=== PATIENT | female | born 1985 | race Asian ===

== ENCOUNTER 2024-04-28 08:42 | Emergency (ER) | payer OTHER ==
[~2024-04-28] VITALS: Ht 144.8 cm; Wt 54.5 kg
[2024-04-28 08:44] VITALS: TEMP 98
[2024-04-28] MEDS ORDERED: SIMV-259 PO (08:47)
[2024-04-28] MEDS: LORazepam 1 MG TABLET PO ONE ×2 (09:50→10:15)
[2024-04-28 09:57] LABS: BASOPHILS % (AUTO) 0.5 % (0.0-2.0); EOSINOPHILS % (AUTO) 0.5 % (1.0-6.0); HEMATOCRIT 38.2 % (36-46); HEMOGLOBIN 12.7 g/dL (12.0-16.0); LYMPHOCYTES # (AUTO) 2.3 K/uL (1.0-4.8); LYMPHOCYTES % (AUTO) 36.8 % (22.0-44.0); MEAN CORPUSCULAR HEMOGLOBIN 28.3 pg (26.0-34.0); MEAN CORPUSCULAR HGB CONC 33.1 G/dL (31.0-37.0); MEAN CORPUSCULAR VOLUME 85 fL (80-100); MONOCYTES # (AUTO) 0.3 K/uL (0.1-1.0); MONOCYTES % (AUTO) 4.7 % (2.0-9.0); NEUTROPHILS # (AUTO) 3.5 K/uL (1.8-7.7); NEUTROPHILS % (AUTO) 57.5 % (40.0-70.0); PLATELET COUNT (AUTO) 316 K/uL (150-450); RED BLOOD CELL COUNT(AUTO) 4.48 MIL/uL (4.00-5.20); RED CELL DISTRIBUTION WIDTH 14.1 % (11.5-14.5); WHITE BLOOD COUNT (AUTO) 6.1 K/uL (4.5-11.0)
[2024-04-28 10:09] LABS: ANION GAP 8 mmol/L (8-16); CALCIUM, TOTAL 8.9 mg/dL (8.8-10.5); CARBON DIOXIDE 26 mmol/L (22-29); CHLORIDE 103 mmol/L (98-107); CREATININE 0.77 mg/dL (0.60-1.30); GLOMERULAR FILTR. RATE CALC > 60 mL/min (>60); GLUCOSE,RANDOM 93 mg/dL (70-110); SODIUM SERUM 137 mmol/L (136-145); UREA NITROGEN, BLOOD 12 mg/dL (7-18)
[2024-04-28 10:28] VITALS: BP 150/84; PULSE 68; RESP 16; O2SAT 99
== END 2024-04-28 10:36 | disposition home or self-care (01) ==
LOC: EMS 08:42
DX: F41.9 Anxiety disorder, unspecified (principal); E78.00 Pure hypercholesterolemia, unspecified; F17.210 Nicotine dependence, cigarettes, uncomplicated; F12.90 Cannabis use, unspecified, uncomplicated; Z90.49 Acquired absence of other specified parts of digestive tract; Z98.51 Tubal ligation status; Z98.890 Other specified postprocedural states
CPT/HCPCS: 80048; 85025; 99283

== ENCOUNTER 2024-08-03 19:14 | Emergency (ER) | payer OTHER ==
[~2024-08-03] VITALS: Ht 144.8 cm; Wt 55.5 kg
[~2024-08-03 19:14] MED LIST: SIMV-259 PO
[2024-08-03 19:17] VITALS: BP 151/89; PULSE 76; RESP 18; TEMP 98.5; O2SAT 100
[2024-08-03] MEDS ORDERED: ACET-2247 PO (20:30)
[2024-08-03] MEDS ORDERED: IBUPROFEN 400 MG TABLET PO ONE (20:30)
[2024-08-03] MEDS ORDERED: ACETAMINOPHEN 325 MG TABLET PO ONE (20:30)
[2024-08-03] MEDS ORDERED: IBUP-1506 PO (20:30)
== END 2024-08-03 20:43 | disposition home or self-care (01) ==
LOC: EMS 19:14
DX: S83.91XA Sprain of unspecified site of right knee, initial encounter (principal); E78.00 Pure hypercholesterolemia, unspecified; F12.90 Cannabis use, unspecified, uncomplicated; Z90.49 Acquired absence of other specified parts of digestive tract; Z98.51 Tubal ligation status; W22.8XXA Striking against or struck by other objects, initial encounter; Y93.89 Activity, other specified; Y92.89 Other specified places as the place of occurrence of the external cause; Y99.8 Other external cause status
CPT/HCPCS: 99283

== ENCOUNTER 2025-07-15 11:20 | Emergency (ER) | payer SELFPAY ==
[~2025-07-15] VITALS: Ht 144.8 cm; Wt 62.3 kg
[~2025-07-15 11:20] MED LIST changes: +ACET-2247 PO; +IBUP-1506 PO
[2025-07-15 12:27] LABS: APPEARANCE,URINE HAZY (CLEAR); GLUCOSE, URINE (UA) NEGATIVE (NEGATIVE); LEUKOCYTE ESTERASE ,URINE LARGE (NEGATIVE); NITRATE,URINE NEGATIVE (NEGATIVE); OCCULT BLOOD,URINE MODERATE (NEGATIVE); SPECIFIC GRAVITIY, URINE 1.009 (1.003-1.030)
[2025-07-15 12:29] LABS: HCG,QUAL URINE NEGATIVE (NEGATIVE)
[2025-07-15 12:38] LABS: SQUAMOUS EPITHELIAL CELL,UR Few /LPF (None Seen)
[2025-07-15] MEDS: ACETAMINOPHEN 500 MG TABLET PO ONE (14:05)
[2025-07-15] MEDS: KETOROLAC TROMETHAMINE 60 MG/2 ML VIAL IM ONE (14:05)
[2025-07-15 14:26] VITALS: BP 145/62; PULSE 82; RESP 18; TEMP 98.1; O2SAT 100
[2025-07-15 14:57] LABS: PLATELET COUNT (AUTO) 258 K/uL (150-450); RED BLOOD CELL COUNT(AUTO) 4.33 MIL/uL (4.00-5.20); RED CELL DISTRIBUTION WIDTH 13.7 % (11.5-14.5); WHITE BLOOD COUNT (AUTO) 10.3 K/uL (4.5-11.0)
[2025-07-15 15:09] LABS: CALCIUM, TOTAL 9.0 mg/dL (8.8-10.5); CREATININE 0.78 mg/dL (0.60-1.30); GLOMERULAR FILTR. RATE CALC > 60 mL/min (>60); GLUCOSE,RANDOM 99 mg/dL (70-110); SODIUM SERUM 139 mmol/L (136-145); UREA NITROGEN, BLOOD 8 mg/dL (7-18)
[2025-07-15] MEDS ORDERED: NITR-104 PO (15:26)
[2025-07-15] MEDS ORDERED: PHEN-846 PO (15:26)
== END 2025-07-15 16:16 | disposition home or self-care (01) ==
LOC: EMS 11:25
DX: N39.0 Urinary tract infection, site not specified (principal); R10.A2 Flank pain, left side; F41.9 Anxiety disorder, unspecified; E78.00 Pure hypercholesterolemia, unspecified; F12.90 Cannabis use, unspecified, uncomplicated; Z90.49 Acquired absence of other specified parts of digestive tract; Z98.890 Other specified postprocedural states; Z98.51 Tubal ligation status; Z79.899 Other long term (current) drug therapy
CPT/HCPCS: 99285; 74176; 80048; 81001; 84703; 85025; 87077; 87086; 36415; 96372; J1885; 87186